=== PATIENT | female | born 1995 | race Caucasian/White ===

== ENCOUNTER → 2023-11-02 07:48 | Outpatient (REF) | payer BC, SELFPAY | LOC: HWRAD 07:48 | PROVIDERS: ATTENDING PHYSICIAN Nurse Practitioner Adult Health | DX: R10.2 Pelvic and perineal pain (principal); R59.0 Localized enlarged lymph nodes | CPT/HCPCS: 76536; 76830; 76856 ==

== ENCOUNTER → 2024-08-09 15:25 | Outpatient (REF) | payer BC, SELFPAY | LOC: HWRAD 15:25 | PROVIDERS: ATTENDING PHYSICIAN Nurse Practitioner Adult Health | DX: M79.645 Pain in left finger(s) (principal) | CPT/HCPCS: 73140 ==